=== PATIENT | male | born 1990 | race Caucasian/White ===

== ENCOUNTER 2023-12-08 14:34 | Emergency (ER) | payer OTHER ==
[~2023-12-08] VITALS: Ht 177.8 cm; Wt 107.1 kg
[2023-12-08 14:34] VITALS: O2SAT 97
[2023-12-08 15:38] LABS: Alanine Aminotransferase 31 U/L (7-40); Alkaline Phosphatase 39 U/L (46-116); Aspartate Aminotransferase 14 U/L (13-40); Calcium 9.4 mg/dL (8.7-10.4); Carbon Dioxide 27 mmol/L (20-30); Chloride 102 mmol/L (98-107); Glucose 86 mg/dL (74-106); Lipase 38 U/L (12-53); Potassium 3.8 mmol/L (3.5-5.1)
[2023-12-08 15:39] LABS: Albumin 4.5 g/dL (3.2-4.8); Anion Gap 10 (5-15); BUN/Creatinine Ratio 5.4 (10.0-20.0); Bilirubin, Total 0.5 mg/dL (0.2-1.0); Blood Urea Nitrogen 6 mg/dL (9-23); Sodium 139 mmol/L (136-145); Total Protein 7.4 g/dL (5.7-8.2)
[2023-12-08] MEDS ORDERED: ZOFR4T PO (16:08)
[2023-12-08] MEDS ORDERED: CIPR-173 PO (16:08)
[2023-12-08 16:16] LABS: Basophils # (auto) 0.1 10 ^3/uL (0-0.2); Basophils % (auto) 0.4 % (0.0-2.0); Eosinophils # (auto) 0.3 10 ^3/uL (0-0.8); Eosinophils % (auto) 2.5 % (0.0-7.0); Hematocrit 49.4 % (41.0-53.0); Hemoglobin 17.3 g/dL (13.5-17.5); Lymphocytes # (auto) 3.1 10 ^3/uL (0.4-5.4); Mean Corpuscular Hemoglobin 32.3 pg (28.0-32.0); Mean Corpuscular Hgb Conc. 34.9 g/dL (32.0-36.0); Mean Corpuscular Volume 92.5 fL (80.0-100.0); Monocytes # (auto) 1.7 10 ^3/uL (0-1.3); Monocytes % (auto) 13.9 % (0.0-12.0); Neutrophils # (auto) 6.8 10 ^3/uL (1.6-8.6); Neutrophils % (auto) 57.2 % (37.0-80.0); Nucleated Red Blood Cells % 0.3 %; Red Blood Cells 5.34 10^6/uL (4.5-5.90); Red Cell Distribution Width 13.2 % (11.8-14.3)
[2023-12-08 20:19] LABS: Urine Bacteria None Seen /hpf (None Seen)
[2023-12-08] MEDS: metroNIDAZOLE 500MG/100ML 100 ML IV ONE (20:24)
[2023-12-08] MEDS: PANTOPRAZOLE 40 MG/10 ML VIAL INJ IV ONE (20:25)
[2023-12-08] MEDS: SODIUM CHLORIDE 0.9% 1,000 ML IVB ONE (20:25)
[2023-12-08] MEDS: ONDANSETRON HCL 4 MG/2 ML VIAL IV ONE (20:25)
[2023-12-08 20:31] VITALS: BP 116/80; PULSE 63; RESP 18; TEMP 98
[2023-12-08 20:37] LABS: Urine Blood Negative /uL (Negative); Urine Clarity Clear (Clear); Urine Color Light-Yellow (Yellow); Urine Hyaline Cast FEW /lpf (0 - 2); Urine Mucus FEW (None Seen); Urine Protein, UAD TRACE (Negative); Urine Specific Gravity 1.015 (1.001-1.035); Urine Urobilinogen Normal (Negative); Urine WBC 2 /hpf (0 - 3); Urine pH 5.5 (5.0-9.0)
== END 2023-12-08 21:46 | disposition home or self-care (01) ==
LOC: ER 14:34
DX: K52.9 Noninfective gastroenteritis and colitis, unspecified (principal); F17.290 Nicotine dependence, other tobacco product, uncomplicated
CPT/HCPCS: 36415; 74176; 80053; 81001; 83690; 85025; 96365; 96375; 99285; C9113; J2405; J3490; J7030

== ENCOUNTER 2025-05-12 08:53 | Emergency (ER) | payer OTHER ==
[~2025-05-12] VITALS: Ht 177.8 cm; Wt 103.3 kg
[~2025-05-12 08:53] MED LIST: CIPR-173 PO; ZOFR4T PO
[2025-05-12 09:36] LABS: Hemoglobin 19.5 g/dL (13.5-17.5)
[2025-05-12 09:38] LABS: Hematocrit 56.3 % (41.0-53.0); Mean Corpuscular Hemoglobin 32.1 pg (28.0-32.0); Mean Corpuscular Volume 92.5 fL (80.0-100.0); Nucleated Red Blood Cells % 0.4 %
--- NOTE | 2025-05-12 09:38 | ED.PDOC ---
HPI Comments A 34 YEAR OLD MALE PRESENTS TO THE ED WITH COMPLAINT OF COUGH. PATIENT STATES HE HAS BEEN EXPERIENCING COUGH AND CONGESTION AND CHEST PAIN DUE TO HIS COUGH FOR THE PAST 1 WEEK. PATIENT WENT TO AN URGENT CARE FOR THIS ISSUE WHERE HE WAS PRESCRIBED TYLENOL, BUT NOTES THERE HAS BEEN NO IMPROVEMENT IN HIS SYMPTOMS AND HE DID NOT RECEIVE ANY COUGH MEDICATION WHILE AT THIS URGENT CARE. PATIENT NOTES THAT HE BEGAN TO EXPERIENCE EPIGASTRIC PAIN THAT RADIATES UP TO HIS CHEST 2 DAYS AGO, EATING INCREASES EPIGASTRIC PAIN. PROMPTING HIS VISIT TO THE ED TODAY. PATIENT DENIES FEVER, CHILLS, SHORTNESS OF BREATH, NAUSEA, VOMITING, HEADACHE, OR OTHER COMPLAINTS. NO OTHER SYMPTOMS OR MODIFYING FACTORS AT THIS TIME. PATIENT IS ALERT, ORIENTED X 4, AND HAS STEADY GAIT. Chief Complaint: Chest Pain Time Seen by MD: 09:34 Reviewed Notes: Nurses Notes, Medications, Allergies Allergies: Coded Allergies: NO KNOWN ALLERGIES (Unverified , 12/08/23) Home Meds Active Scripts Benzonatate (Benzonatate) 200 Mg Cap, 1 CAP PO TID, #30 CAP Prov:UZIEL PEREZ 05/12/25 Ondansetron Odt 4MG Tab (ZOFRAN PO) 4 Mg Tb, 4 MG PO Q8HP PRN for 5 Days, #15 TAB ODT TAB-DISSOLVE IN MOUTH, THEN SWALLOW Prov:MARII SILVERIO MD 12/08/23 Ciprofloxacin Hcl (Cipro) 500 Mg Tab, 1 TAB PO BID, #14 TAB Prov:MARII SILVERIO MD 12/08/23 Information Source: Patient, Spouse Mode of Arrival: Ambulatory Brought in by: SPOUSE Severity: Moderate Timing: Days Duration: Since onset, Days Prehospital treatment: None Location: Substernal Radiation: Abdomen (EPIGASTRIC REGION) Quality: Aching Onset: At Rest Cardiac Risk Factors: None PE Risk Factors: None History of: None Modifying Factors: Coughing Associated Signs and Symptoms: Abdominal Pain Past Medical History PAST MEDICAL HISTORY: Denies Surgical History: Denies all surgeries Family History Family History: Reviewed,noncontributory to illness Social History Smoker: Other Alcohol: Occasionally Drugs: Denies Drug Use Lives In: Home Constitutional: denies: chills, diaphoresis, fatigue, fever, malaise, sweats, weakness, others EENTM: reports: nose congestion; denies: blurred vision, double vision, ear bleeding, ear discharge, ear drainage, ear pain, ear ringing, eye pain, eye redness, hearing loss, mouth pain, mouth swelling, nasal discharge, nose bleeding, nose pain, photophobia, tearing, throat pain, throat swelling, voice changes, others Respiratory: reports: cough; denies: hemoptysis, orthopnea, SOB at rest, shortness of breath, SOB with excertion, stridor, wheezing, others Cardiovascular: reports: chest pain; denies: dizzy spells, diaphoresis, Dyspnea on exertion, edema, irregular heart beat, left arm pain, lightheadedness, palpitations, PND, syncope, others Gastrointestinal: reports: abdominal pain (EPIGASTRIC PAIN); denies: abdomen distended, blood streaked bowels, constipated, diarrhea, dysphagia, difficulty swallowing, hematemesis, melena, nausea, poor appetite, poor fluid intake, re ctal bleeding, rectal pain, vomiting, others Genitourinary: denies: burning, dysuria, flank pain, frequency, hematuria, incontinence, penile discharge, penile sore, pain, testicle pain, testicle swelling, urgency, others Neurological: denies: dizziness, fainting, headache, left sided numbness, left sided weakness, numbness, paresthesia, pre-existing deficit, right sided numbness, right sided weakness, seizure, speech problems, tingling, tremors, weakness, others Musculoskeletal: denies: back pain, gout, joint pain, joint swelling, muscle pain, muscle stiffness, neck pain, others Integumetry: denies: bruises, change in color, change in hair/nails, dryness, laceration, lesions, lumps, rash, wounds, others Allergic/Immunocompromised: denies: Difficulty Healing, Frequent Infections, Hives, Itching, others Hematologic/Lymphatic: denies: anemia, blood clots, easy bleeding, easy bruisin g, swollen glands, others Endocrine: denies: excessive hunger, excessive sweating, excessive thirst, excessive urination, flushing, intolerance to cold, intolerance to heat, unexplained weight gain, unexplained weight loss, others Psychiatric: denies: anxiety, bipolar disorder, depression, hopeless, panic disorder, schizophrenia, sleepless, suicidal, others All Other Systems: Reviewed and Negative Physical Exam General Appearance: Mild Distress, Normal HEENT: Normal ENT Inspection, PERRL/EOMI, Pharynx Normal, TMs Normal Neck: Full Range of Motion, Non-Tender, Normal, Normal Inspection Respiratory: Expiration, No Accessory Muscle Use, No Respiratory Distress, Rhonchi, Other (TENDERNESS MIDDLE STERNUM. ) Cardiovascular: No Edema, No JVD, No Murmur, No Gallop, Normal Peripheral Pulses, Regular Rate/Rhythm Breast Exam: Deferred Gastrointestinal: Epigastric, No Organomegaly, No Pulsatile Mass, Normal Bowel Sounds, Soft, Tenderness (EPIGASTRIC TO MIDDLE STERNUM, NO GUARDING AND REBPOUND TENDERNESS. ) Genitalia: Deferred Pelvic: Deferred Rectal: Deferred Extremities: No calf tenderness, Normal capillary refill, Normal inspection, Normal range of motion, Non-tender, No pedal edema Musculoskeletal : Apperance: Normal Neurologic: Alert, automobile rental clerk II-XII nml as Tested, No Motor Deficits, Normal Affect, Normal Mood, No Sensory Deficits Cerebellar Function: Normal Reflexes: Normal Skin: Dry, Normal Color, Warm Peripheral Pulses: 2+ carotid (R), 2+ carotid (L) Lymphatic: No Adenopathy EKG EKG : Pulse Rate (adult): 88 [place]: Normal Cardiac Rhythm: NSR Block: None Hypertrophy: None ST: Normal Was a procedure done? Was a procedure done?: No CP Differential Dx Differential Diagnosis: Angina, Anxiety / Panic Attack, ID, Sinus Tachycardia Other Differential Diagnosis GALLSTONES, GERD, PANCREATITIS, Differential Diagnosis: HTN Essential, HTN Accelerated, Medical NonCompliance Differential Diagnosis: Angina, Chest Wall Pain, Costochondritis, Esophageal reflux/spasm, Gastritis, Myocardial Infarction, Pneumonia X-Ray, Labs, Meds, VS Vital Signs Date Time Temp Pulse Resp B/P (MAP) Pulse Ox O2 Delivery O2 Flow Rate FiO2 05/12/25 13:08 103 16 95 Room Air 05/12/25 13:08 98.7 103 16 131/83 (99) 95 98.7 05/12/25 10:41 88 05/12/25 09:02 88 05/12/25 08:55 97.3 87 15 162/74 99 97.3 Lab Test 05/12/25 12:02 05/12/25 10:00 05/12/25 09:10 Range/Units Troponin I High Sensitivity 29 27 30 </=54 ng/L Lipase 47 12-53 U/L White Blood Count 9.1 4.4-10.8 10^3/uL Red Blood Count 6.08 H 4.5-5.90 10^6/uL Hemoglobin 19.5 H 13.5-17.5 g/dL Hematocrit 56.3 H 41.0-53.0 % Mean Corpuscular Volume 92.5 80.0-100.0 fL Mean Corpuscular Hemoglobin 32.1 H 28.0-32.0 pg Mean Corpuscular Hemoglobin Concent 34.7 32.0-36.0 g/dL Red Cell Distribution Width 13.3 11.8-14.3 % Platelet Count 259 140-450 10^3/uL Mean Platelet Volume 8.1 6.9-10.8 fL Neutrophils (%) (Auto) 60.8 37.0-80.0 % Lymphocytes (%) (Auto) 28.9 10.0-50.0 % Monocytes (%) (Auto) 7.0 0.0-12.0 % Eosinophils (%) (Auto) 2.6 0.0-7.0 % Basophils (%) (Auto) 0.7 0.0-2.0 % Neutrophils # (Auto) 5.5 1.6-8.6 10 ^3/uL Lymphocytes # (Auto) 2.6 0.4-5.4 10 ^3/uL Monocytes # (Auto) 0.6 0-1.3 10 ^3/uL Eosinophils # (Auto) 0.2 0-0.8 10 ^3/uL Basophils # (Auto) 0.1 0-0.2 10 ^3/uL Nucleated Red Blood Cells 0.4 % Sodium Level 142 136-145 mmol/L Potassium Level 4.2 3.5-5.1 mmol/L Chloride Level 104 98-107 mmol/L Carbon Dioxide Level 31 20-31 mmol/L Anion Gap 7 5-15 Blood Urea Nitrogen 7 L 9-23 mg/dL Creatinine 1.17 0.700-1.30 mg/dL Glomerular Filtration Rate Calc 85 >90 mL/min BUN/Creatinine Ratio 6.0 L 10.0-20.0 Serum Glucose 78 74-106 mg/dL Calcium Level 9.8 8.7-10.4 mg/dL [facility] [address] [facility] [address] Ph: [phone] DIAGNOSTIC IMAGING Diagnostic Imaging Report : [id number] Signed PATIENT: ANNALEE CONDEACCT: [id number] UNIT: [id number] : 1990 LOC: ER ROOM / BED: / AGE / SEX: 34 / M ADM STATUS: REG ER SERVICE 1595 ORDERING PHYSICIAN: UZIEL PEREZ PROCEDURE(s): GBUS - GALLBLADDER REASON: EPIGASTRIC P[AIN TO MIDDLE STERNUM ORDER NUMBER(s): [id number], ACCESSION NUMBER(s): [id number] EXAM: US GALLBLADDER INDICATION: EPIGASTRIC P[AIN TO MIDDLE STERNUM. TECHNIQUE: Multiple real-time sonographic images were obtained of the right upper quadrant. COMPARISON: None FINDINGS: The liver demonstrates homogenous echotexture without focal mass lesions. The liver measures 16.5 cm. There is an echogenic structure in the right lobe measuring 0.5 x 0.8 x 0.8 cm. There is hepatopedal color doppler flow in the main portal vein. There is no intrahepatic biliary ductal dilatation. The gallbladder is without evidence of stone or sludge. The gallbladder wall measures 0.2 cm. The common bile duct measures 0.4 cm. There is a negative sonographic Anderson's sign. The right kidney measures 12.1 cm. The right kidney is normal in contour, size, and shape. There is no hydronephrosis. The left kidney measures 12.6 cm. There is increased echogenicity of both kidneys. Mild fullness of the right renal pelvis. The pancreas is not well visualized due to overlying bowel gas. Visualized portions of the aorta and inferior vena cava are unremarkable. No evidence of ascites. IMPRESSION: 1. Echogenic structure in the right lobe of the liver measuring 0.5 x 0.8 x 0.8 cm. This may represent a hemangioma. 2. Increased echogenicity of both kidneys which may be seen in medical renal disease. Mild right renal pelvis without isauro hydronephrosis. ATED BY: AMBER VERGARA MD DICTATED DATE/TIME: 05/12/251046 SIGNED BY: AMBER VERGARA MD SIGNED DATE/TIME: 05/12/251046 CC: [address] [address], [place] - [address] Ph: [phone] DIAGNOSTIC IMAGING Diagnostic Imaging Report : [id number] Signed PATIENT: ANNALEE CONDEACCT: [id number] UNIT: [id number] : 1990 LOC: ER ROOM / BED: / AGE / SEX: 34 / M ADM STATUS: REG ER SERVICE 9 ORDERING PHYSICIAN: UZIEL PEREZ PROCEDURE(s): CXR1 - CHEST XRAY 1 VIEW REASON: CHEST PAIN ORDER NUMBER(s): [id number], ACCESSION NUMBER(s): [id number] EXAM: XY CHEST XRAY 1 VIEW Indication: CHEST PAIN Technique: Single frontal view of the chest was obtained Comparison: None FINDINGS: Lines and Tubes: None Lungs: No focal consolidation. Pleura: No effusion. No pneumothorax. Cardiomediastinal contours: Unremarkable Bones: No acute osseous abnormality. IMPRESSION: No acute cardiopulmonary disease. ATED BY: MAXIMINO JIMENEZ MD DICTATED DATE/TIME: 05/12/25 1010 SIGNED BY: MAXIMINO JIMENEZ MD SIGNED DATE/TIME: 05/12/25 1010 CC: X-Ray, Labs, Meds, VS Comment EXTERNAL MEDICAL RECORDS REVIEWED: [NONE] INDEPENDENT HISTORIANS: [NONE] SOCIAL DETERMINANTS OF HEALTH: [NONE] LABS ORDERED: CBC, CMP, LIPASE, UA, TROPONIN X3 REVIEWED AND INTERPRETED RESULTS: NORMAL IMAGING ORDERED: ARE TEST, US ABDOMEN TREATMENTS ORDERED: PT DECLINED PAIN MEDICATION. PROCEDURES PERFORMED: NONE CRITICAL CARE TIME: NONE I HAVE DISCUSSED THE PATIENT WITH THE ATTENDING PHYSICIAN DR. PEREZ AND HE AGREES WITH THE PATIENT'S PLAN OF CARE AND DISPOSITION. BASED ON HISTORY OF PRESENT ILLNESS, AND PHYSICAL EXAM, PATIENT WILL BE DISCHARGED HOME. DISCUSSED PLAN FOR DISCHARGE HOME WITH RX [[facility]]. MEDICATION WARNINGS GIVEN. SHARED DECISION MAKING: DISCUSSED WITH PATIENT THAT THEIR WORKUP WAS NORMAL. PATIENT INSTRUCTED TO FOLLOW UP WITH PRIMARY CARE PROVIDER IN 1-2 DAYS FOR RE- EVALUATION OF SYMPTOMS. PATIENT VERBALIZES UNDERSTANDING TO RETURN TO ED FOR NEW OR WORSENING SYMPTOMS OR IF FOLLOW UP WITH PCP CANNOT BE OBTAINED. PATIENT FEELS COMFORTABLE GOING HOME AT THIS TIME. ALL QUESTIONS ADDRESSED AT TIME OF DISCHARGE. Images Reviewed?: Images reviewed and evaluated by me Time of 1ST Reevaluation: 13:05 Reevaluation 1ST: Improved Patient Education/Counseling: Diagnosis, Treatment, Need For Follow Up Family Education/Counseling: Diagnosis, Treatment, Need For Follow Up, No Family Present Medical Screening: No EMC Exist At This Time SEPSIS Sepsis Screen Date sepsis recognized/suspect: May 12, 2025 Time Sepsis recognized/suspect: 08 Recent Procedure: No On Antibiotic Therapy: No Respiratory Rate >20: No Heart Rate >90: No Temp<36 C (96.8 F) or >38.3 C: No SBP <90 or MAP <65 mmHG: No New Acute Mental Status Change: No Is the patient on CPAP, BIPAP,: No Physician Orders Gallbladder (05/12/25 09:30) Chest Xray 1 View (05/12/25 09:30) Vital Signs Date Time Temp Pulse Resp B/P (MAP) Pulse Ox O2 Delivery O2 Flow Rate FiO2 05/12/25 13:08 103 16 95 Room Air 05/12/25 13:08 98.7 103 16 131/83 (99) 95 98.7 05/12/25 10:41 88 05/12/25 09:02 88 05/12/25 08:55 97.3 87 15 162/74 99 97.3 Laboratory Tests Test 05/12/25 09:10 White Blood Count 9.1 10^3/uL (4.4-10.8) Departure 1 Departure Time of Disposition: 13:05 Impression: Primary Impression: Non-cardiac chest pain Additional Impression: Acute bronchitis Qualified Codes: J20.9 - Acute bronchitis, unspecified Disposition: HOME / SELF CARE / HOMELESS Condition: Stable Additional Instructions: INSTRUCTIONS: FOLLOW-UP WITH PCP IN 1 TO 2 DAYS. TAKE MEDICATIONS PRESCRIBED. RETURN TO ED FOR ANY NEW OR WORSENING SYMPTOMS. e-Prescriptions Benzonatate (Benzonatate) 200 Mg Cap 1 CAP PO TID, #30 CAP Prov: UZIEL PEREZ 05/12/25 Discharged With: Self, Spouse Critical Care Note Critical Care Time?: No Stability Stability form required: No Heart Score Heart Score: Heart Score Response (Comments) Value History Slightly Suspicious 0 EKG Normal 0 Age <45 0 Risk Factors No known risk factors 0 Troponin Normal limit 0 Total 0 I personally scribed for UZIEL PEREZ ([email or web address]) on 05/12/25 at 09:38. Electronically submitted by Kandi Munoz ([email or web address]). I personally scribed for UZIEL PEREZ ([email or web address]) on 05/12/25 at 10:41. Electronically submitted by Kandi Munoz ([email or web address]). I personally scribed for UZIEL PEREZ ([email or web address]) on 05/12/25 at 10:59. Electronically submitted by Kandi Munoz ([email or web address]). I personally scribed for UZIEL PEREZ ([email or web address]) on 05/12/25 at 12:50. Electronically submitted by Kandi Munoz ([email or web address]). I personally scribed for UZIEL PEREZ ([email or web address]) on 05/12/25 at 13:04. Electronically submitted by Kandi Munoz ([email or web address]). I personally scribed for UZIEL PEREZ ([email or web address]) on 05/13/25 at 07:02. Electronically submitted by Sreedhar Duarte ([email or web address]). UZIEL PEREZ May 12, 2025 09:38
[2025-05-12 09:46] LABS: Chloride 104 mmol/L (98-107); Potassium 4.2 mmol/L (3.5-5.1); Sodium 142 mmol/L (136-145)
[2025-05-12 09:47] LABS: Anion Gap 7 (5-15); Calcium 9.8 mg/dL (8.7-10.4); Carbon Dioxide 31 mmol/L (20-31)
[2025-05-12 09:52] LABS: BUN/Creatinine Ratio 6.0 (10.0-20.0); Glucose 78 mg/dL (74-106)
[2025-05-12 09:54] LABS: Blood Urea Nitrogen 7 mg/dL (9-23)
--- NOTE | 2025-05-12 10:12 | DVH ---
EXAM: XY CHEST XRAY 1 VIEW Indication: CHEST PAIN Technique: Single frontal view of the chest was obtained Comparison: None FINDINGS: Lines and Tubes: None Lungs: No focal consolidation. Pleura: No effusion. No pneumothorax. Cardiomediastinal contours: Unremarkable Bones: No acute osseous abnormality. IMPRESSION: No acute cardiopulmonary disease.
--- NOTE | 2025-05-12 10:50 | DVH ---
EXAM: US GALLBLADDER INDICATION: EPIGASTRIC P[AIN TO MIDDLE STERNUM. TECHNIQUE: Multiple real-time sonographic images were obtained of the right upper quadrant. COMPARISON: None FINDINGS: The liver demonstrates homogenous echotexture without focal mass lesions. The liver measures 16.5 cm. There is an echogenic structure in the right lobe measuring 0.5 x 0.8 x 0.8 cm. There is hepatopedal color doppler flow in the main portal vein. There is no intrahepatic biliary ductal dilatation. The gallbladder is without evidence of stone or sludge. The gallbladder wall measures 0.2 cm. The common bile duct measures 0.4 cm. There is a negative sonographic Anderson's sign. The right kidney measures 12.1 cm. The right kidney is normal in contour, size, and shape. There is no hydronephrosis. The left kidney measures 12.6 cm. There is increased echogenicity of both kidneys. Mild fullness of the right renal pelvis. The pancreas is not well visualized due to overlying bowel gas. Visualized portions of the aorta and inferior vena cava are unremarkable. No evidence of ascites. IMPRESSION: 1. Echogenic structure in the right lobe of the liver measuring 0.5 x 0.8 x 0.8 cm. This may represent a hemangioma. 2. Increased echogenicity of both kidneys which may be seen in medical renal disease. Mild right renal pelvis without isauro hydronephrosis.
[2025-05-12] MEDS ORDERED: BENZ200C64 PO (13:04)
[2025-05-12 13:08] VITALS: BP 131/83; PULSE 103; RESP 16; TEMP 98.7; O2SAT 95
--- NOTE | 2025-05-18 07:02 | ECG ---
[facility] Test Date: 2025-05-12 Test Time: 09:02:35 Pat Name: ANNALEE CONDE Department: [facility] ED Patient ID: [id number] Room: Gender: M Insurance Claims Specialist: florencio : 1990 Requested By: UZIEL PEREZ Order Number: [id number] Reading MD: Marky Rodrigez Measurements Intervals [place] Rate: 88 P: 73 NE: 139 QRS: 91 QRSD: 94 T: -41 QT: 314 QTc: 380 Interpretive Statements Sinus rhythm Consider left atrial enlargement Borderline right axis deviation Abnormal T, consider ischemia, inferior leads Baseline wander in lead(s) II,III,aVR,aVL,aVF,V3,V4,V5,V6 Electronically Signed On 05-18-2025 17:36:54 PST by Marky Rodrigez Please click the below link to view image of tracing.
== END 2025-05-12 13:10 | disposition home or self-care (01) ==
LOC: ER 08:53
DX: J20.9 Acute bronchitis, unspecified (principal); R07.89 Other chest pain; F17.200 Nicotine dependence, unspecified, uncomplicated; Z79.899 Other long term (current) drug therapy
CPT/HCPCS: 36415; 71045; 76705; 80048; 83690; 84484; 85025; 93005